=== PATIENT | male | born 1965 | race Hispanic/Latino ===

== ENCOUNTER 2019-09-08 16:05 | Observation (INO) | payer OTHER, SELFPAY ==
[~2019-09-08 16:05] MED LIST: Iopamidol-370 76% 500 ML 1 ML ONE
[2019-09-08 16:45] LABS: #Lymphocytes 1.1 thou/uL (1.20-3.40); #Monocytes 1.3 thou/uL (0.11-0.59); #Neutrophils 9.5 thou/uL (1.40-6.50); %Basophils 0.2 % (0.0-1.0); %Eosinophils 0.1 % (0.0-10.0); %Lymphocytes 9.3 % (21.0-51.0); %Monocytes 10.7 % (0.0-10.0); %Neutrophils 79.8 % (42.0-75.0); Hemoglobin 13.1 g/dL (14.0-18.0); Mean Corpuscular HGB CONC 31.8 g/dL (32.0-36.0); Mean Corpuscular Hemoglobin 29.2 pg (27.0-31.0); Mean Corpuscular Volume 91.9 fL (78.0-98.0); Mean Platelet Volume 8.6 fL (7.4-10.4); Platelet Count 307 thou/uL (130-400); RBC Distribution Width 12.5 % (11.5-14.5); Red Blood Cell (RBC) Count 4.48 mill/uL (4.70-6.10); White Blood Cell (WBC) Count 11.8 thou/uL (4.8-10.8)
--- NOTE | 2019-09-08 17:03 | RAD ---
Chest AP view INDICATION: History of positive Covid testing 3 days ago with worsening cough, sore throat and chest pain COMPARISON: February 05, 2012 chest radiograph FINDINGS: Lungs: There are patchy peripheral airspace opacities consistent with patient's known history of Cov id positive infection. More prominent areas of airspace opacity are seen within the left lower lobe. Cardiac silhouette: The cardiomediastinal silhouette appears within normal limits. Pulmonary vasculature: Normal Pleural spaces: No pleural effusion or pneumothorax is demonstrated. Upper abdomen: No abnormality seen. Osseous structures: No acute osseous abnormality. Additional findings: None. IMPRESSION: Patchy areas of peripheral airspace opacity consistent patient's known history of Covid possible pneu monia. Continued follow-up is recommended.
[2019-09-08 17:12] LABS: ALT (SGPT) 82 U/L (8-55); AST (SGOT) 51 U/L (5-34); Albumin 3.8 g/dL (3.5-5.0); Alkaline Phosphatase 155 U/L (40-110); Anion Gap 12 mmol/L (10-20); BUN (Urea Nitrogen) 15 mg/dL (8.4-25.7); Bilirubin, Total 0.7 mg/dL (0.2-1.2); Calc. Creatinine Clearance 0 mL/min (70-130); Calcium 9.2 mg/dL (7.8-10.44); Carbon Dioxide 26 mmol/L (22-29); Chloride 102 mmol/L (98-107); Estimated GFR-MDRD 86; Globulin 4.1 g/dL (2.4-3.5); Glucose 140 mg/dL (70-105); Potassium 3.9 mmol/L (3.5-5.1); Protein, Total 7.9 g/dL (6.0-8.3); Sodium 136 mmol/L (136-145)
[2019-09-08 17:18] LABS: INR-International Normal Ratio 1.1; Prothrombin Time 14.6 sec (12.0-14.7)
[2019-09-08 17:19] LABS: D-Dimer Test 1.05 *mcg/mL (0.27-0.43); PTT 44.4 sec (22.9-36.1)
--- NOTE | 2019-09-08 17:58 | CT ---
CTA Angio Chest W WO Con 09/08/2019 5:28 PM Indication: Cough, sore throat, chest pain and positive Covid testing Technique: Multiple CTA images were obtained of the thorax with IV contrast. 3-D rendering: MIP michelle nstructed images were created and reviewed. Comparison: No relevant prior studies available. Findings: Pulmonary arteries: No central or segmental pulmonary embolus is evident. Heart and Aorta: There is mild cardiomegaly. The aorta and great vessels of the neck appear patent. There are mild vascular calcifications involving thoracic aorta. Mediastinum:There are a few mildly prominent, shotty appearing lymph nodes within the mediastinum. On e of the largest is seen within the left tracheobronchial region measuring approximately 6 mm. There is a subcarinal lymph node measuring 1.1 cm. There are mildly prominent hilar lymph nodes. One of the largest measures 8 mm within the left hilar region. Lungs:There are prominent patchy areas of peripheral groundglass airspace opacity seen affecting both lungs but more prominently within a basilar distribution. Pleural space: Clear. Upper Abdomen: There are some punctate densities in the gallbladder neck suspicious for tiny stones. Osseous Structures: No acute osseous abnormality. There is scattered degenerative and osteoarthritic change present. Soft tissues:No abnormality. Other findings:None. Impression: 1. No central or segmental pulmonary embolus. 2. Prominent areas of peripheral groundglass airspace opacity consistent with a radiographic pattern seen with Covid related pneumonia. 3. Mild cardiomegaly. 4. Suspected tiny gallstones.
--- NOTE | 2019-09-08 19:57 | PDOC.HHP ---
Hospitalist HPI - History of Present Illness COVID19 +'ve/ hypoxia History of Present Illness: Patient with no significant PMH per his recollection presents to ED for evaluation of worsening dyspnea/SOB. Tells me that over the last 1.5 weeks has been having increasing shortness of breath with mild cough and productive sputum. He is known to be COVID19 +'ve. Tells me that over the last several days his shortness of breath appears to be worsening particularly on exertion and at night. Denies any fever or chills. On my exam he is saturating well in the mid-high 90s on 2L O2 via NC. He does appear to be somewhat dyspenic after short conversation but is speaking in full sentences with no no evidence of distress. Initial ED evaluation reveals CT scan suggestive of bilateral multilobar PNA suggestive of COVID19. VS reveal borderline hypoxia in the low 90s on room air. Haylie signs are otherwise stable. LFTs are mildly elevated. D-dimer 1.05 with negative CTA for PE. Hospitalist ROS - Review of Systems Constitutional: reports: weakness. denies: fever, chills Eyes: denies: vision change ENT: denies: ear pain, nose congestion, throat pain Respiratory: reports: cough, shortness of breath, SOB with excertion, sputum. denies: wheezing Cardiovascular: denies: chest pain, palpitations, orthopnea, paroxysmal noc. dyspnea Gastrointestinal: denies: nausea, vomiting, abdominal pain Genitourinary: denies: dysuria, frequency, incontinence Musculoskeletal: denies: neck pain, back pain Skin: denies: rash, lesions, janet, bruising, other Neurological: denies: weakness, numbness, incoordination, change in speech, confusion, seizures, other - Medication Medications: No medications on record. Hospitalist History - Past Medical History Cardiac: denies: CAD, CHF, HTN, Hyperlipidemia Pulmonary: denies: asthma, bronchitis, COPD, deep vein thrombosis, emphysema - Social History Smoking Status: Smoker, status unknown - Exam General Appearance: NAD, awake alert Eye: PERRL ENT: normocephalic atraumatic, no oropharyngeal lesions, moist mucosa Neck: supple, no JVD Heart: RRR, no murmur Respiratory - other findings: Decreased breath sounds with fine scattered rhonchi Gastrointestinal: soft, non-tender, non-distended, normal bowel sounds, no palpable masses, no hepatomegaly Skin: normal turgor, no lesions Psychiatric: normal affect Hospitalist Results - Labs Result Diagrams: 09/09/19 04:20 09/09/19 04:20 Lab results: WBC 11.8 thou/uL (4.8-10.8) H 09/08/19 16:29 Hgb 13.1 g/dL (14.0-18.0) L 09/08/19 16:29 Hct 41.2 % (42.0-52.0) L 09/08/19 16:29 MCV 91.9 fL (78.0-98.0) 09/08/19 16:29 Plt Count 307 thou/uL (130-400) 09/08/19 16:29 Neutrophils % 79.8 % (42.0-75.0) H 09/08/19 16:29 Sodium 136 mmol/L (136-145) 09/08/19 16:29 Potassium 3.9 mmol/L (3.5-5.1) 09/08/19 16:29 Chloride 102 mmol/L (98-107) 09/08/19 16:29 Carbon Dioxide 26 mmol/L (22-29) 09/08/19 16:29 BUN 15 mg/dL (8.4-25.7) 09/08/19 16:29 Creatinine 0.92 mg/dL (0.7-1.3) 09/08/19 16:29 Glucose 140 mg/dL (70-105) H 09/08/19 16:29 Lactic Acid 1.7 mmol/L (0.5-2.2) 09/08/19 16:29 Calcium 9.2 mg/dL (7.8-10.44) 09/08/19 16:29 Total Bilirubin 0.7 mg/dL (0.2-1.2) 09/08/19 16:29 AST 51 U/L (5-34) H 09/08/19 16:29 ALT 82 U/L (8-55) H 09/08/19 16:29 Alkaline Phosphatase 155 U/L (40-110) H 09/08/19 16:29 Creatine Kinase 37 U/L (30-200) 09/08/19 16:29 B-Natriuretic Peptide 59.0 pg/mL (0-100) 09/08/19 16:29 Serum Total Protein 7.9 g/dL (6.0-8.3) 09/08/19 16:29 Albumin 3.8 g/dL (3.5-5.0) 09/08/19 16:29 - Radiology Interpretation CT scan - chest Status: image reviewed by me (Suggestive of COVID19.) Hospitalist H&P A/P - Plan Plan: Problem List 1. Multilobar Pneumonia due to COVID19 2. Hypoxia 3. Abnormal LFTs Assessment/Plan 1. Multilobar Pneumonia due to COVID19 - admit patient for further observation - currently with no evidence of sepsis or distress - continuous pulse ox & oxygen supplementation - consider repeating x-ray and ABG in AM - pending night progression will benefit from exercise desaturation - hold off antibiotics and steroids for now & monitor progression - consider remdesivir if further decompensation occurs - continue with antitussives & Tylenol PRN 2. Hypoxia - in setting of COVID19 -continuous pulse ox & oxygen supplementation - consider repeating x-ray and ABG in AM - rest of care per above plan 3. Abnormal LFTs - likely in setting of COVID19 - monitor DVT PPX: Lovenox FULL CODE
[2019-09-08] MEDS ORDERED: cefTRIAXone\\ROCEPHIN 2 GM VIAL ONE (20:32)
[2019-09-08] MEDS ORDERED: Azithromycin 500 MG VIAL ONE (20:32)
[2019-09-08] MEDS ORDERED: Sodium Chloride 0.9% 100 ML ONE (20:32)
[2019-09-08] MEDS ORDERED: Guaifenesin DM 100-10/5 ML UDCUP PO PRN (20:35)
[2019-09-08] MEDS ORDERED: Ondansetron PF 4 MG/2 ML Vial IVP PRN (20:35)
[2019-09-08] MEDS ORDERED: Acetaminophen 325 MG TAB PO PRN (20:35)
[2019-09-08] MEDS ORDERED: Senokot S 8.6-50 MG TAB PO PRN (20:35)
[2019-09-08 22:32] VITALS: BMI 26.0
[2019-09-09 04:49] LABS: #Lymphocytes 1.1 thou/uL (1.20-3.40); #Monocytes 1.3 thou/uL (0.11-0.59); #Neutrophils 6.6 thou/uL (1.40-6.50); %Basophils 0.2 % (0.0-1.0); %Eosinophils 0.5 % (0.0-10.0); %Lymphocytes 11.9 % (21.0-51.0); %Monocytes 13.9 % (0.0-10.0); %Neutrophils 73.5 % (42.0-75.0); Hemoglobin 12.1 g/dL (14.0-18.0); Mean Corpuscular HGB CONC 31.3 g/dL (32.0-36.0); Mean Corpuscular Volume 92.8 fL (78.0-98.0); Mean Platelet Volume 8.7 fL (7.4-10.4); Platelet Count 287 thou/uL (130-400); RBC Distribution Width 12.5 % (11.5-14.5); Red Blood Cell (RBC) Count 4.17 mill/uL (4.70-6.10)
[2019-09-09 05:07] LABS: Anion Gap 12 mmol/L (10-20); BUN (Urea Nitrogen) 15 mg/dL (8.4-25.7); Calc. Creatinine Clearance 114 mL/min (70-130); Calcium 8.8 mg/dL (7.8-10.44); Carbon Dioxide 25 mmol/L (22-29); Chloride 103 mmol/L (98-107); Estimated GFR-MDRD Greater than 90; Glucose 126 mg/dL (70-105); Potassium 3.9 mmol/L (3.5-5.1); Sodium 136 mmol/L (136-145)
[2019-09-09] MEDS: Enoxaparin Sodium 40 MG/0.4 ML SYRINGE SC SCH (09:06)
--- NOTE | 2019-09-09 19:32 | PDOC.HOSPP ---
- Subjective Encounter Date: 09/09/19 Subjective: The patient is laying comfortably in bed. No acute distress was noted. He saturating in the low 90s on room air at rest. - Objective Vital Signs & Weight: Vital Signs (12 hours) Temp Pulse Resp BP Pulse Ox 09/09/19 15:03 98.6 F 78 20 155/93 H 95 09/09/19 13:07 99.2 F 88 21 H 159/94 H 95 09/09/19 09:05 98.2 F 84 33 H 143/93 H 94 L Weight Weight 161 lb 9.6 oz Result Diagrams: 09/09/19 04:20 09/09/19 04:20 Hospitalist ROS - Medication Medications: Active Medications Generic Name Dose Route Start Last Admin Trade Name Freq PRN Reason Stop Dose Admin Enoxaparin Sodium 40 mg 09/09/19 09:00 09/09/19 09:06 Lovenox SC 40 mg 0900 ELISEO Administration - Exam General Appearance: awake alert ENT: normocephalic atraumatic Neck: supple Heart: RRR Respiratory: normal chest expansion, no tachypnea Gastrointestinal: soft Neurological: cranial nerve grossly intact, no focal deficits
[2019-09-10] MEDS: Enoxaparin Sodium 40 MG/0.4 ML SYRINGE SC SCH (07:47)
[2019-09-10] MEDS: Dexamethasone 4 MG TAB PO SCH (10:03)
--- NOTE | 2019-09-10 20:16 | PDOC.HOSPP ---
- Subjective Encounter Date: 09/10/19 - Objective Vital Signs & Weight: Vital Signs (12 hours) Temp Pulse Resp BP Pulse Ox 09/10/19 15:00 98.6 F 90 27 H 132/85 96 09/10/19 12:46 98.6 F 71 16 149/95 H 98 Weight Admit Weight 161 lb 9.6 oz Weight 161 lb 9.6 oz Result Diagrams: 09/09/19 04:20 09/09/19 04:20 Hospitalist ROS - Review of Systems Respiratory: reports: SOB with excertion - Medication Medications: Active Medications Generic Name Dose Route Start Last Admin Trade Name Freq PRN Reason Stop Dose Admin Acetaminophen 650 mg 09/08/19 20:35 09/10/19 05:26 Tylenol PO 650 mg Q4H PRN Administration Headache/Fever/Mild Pain (1-3) Dexamethasone 6 mg 09/10/19 08:00 09/10/19 10:03 Decadron PO 6 mg QAM-WM ELISEO Administration Enoxaparin Sodium 40 mg 09/09/19 09:00 09/10/19 07:47 Lovenox SC 40 mg 0900 ELISEO Administration Sodium Chloride 10 ml 09/10/19 09:00 09/10/19 20:14 Flush - Normal Saline IVF 10 ml Q12HR ELISEO Administration - Exam General Appearance: NAD, awake alert ENT: normocephalic atraumatic Heart: RRR Respiratory: normal chest expansion, no tachypnea, tachypneic Neurological: cranial nerve grossly intact Hosp A/P (1) COVID-19 Code(s): U07.1 - COVID-19 Status: Acute (2) Acute respiratory failure with hypoxia Code(s): J96.01 - ACUTE RESPIRATORY FAILURE WITH HYPOXIA Status: Acute - Plan The patient's shortness of breath is slowly improving. Still requiring oxygen. Dexamethasone 6 mg orally daily for 10-day regimen has been initiated due to possible benefit of reducing mortality per recent [place] study.
[2019-09-11] MEDS: Dexamethasone 4 MG TAB PO SCH (08:01)
[2019-09-11] MEDS: Enoxaparin Sodium 40 MG/0.4 ML SYRINGE SC SCH (08:02)
[2019-09-11 09:15] VITALS: BP 139/89; TEMP 96.9
--- NOTE | 2019-09-11 23:15 | DIS ---
DATE OF ADMISSION: 09/08/2019 DATE OF DISCHARGE: 09/11/2019 DISCHARGE DIAGNOSES: 1. Acute respiratory failure with hypoxia. 2. COVID-19 pneumonia. DISCHARGE MEDICATIONS: 1. Tylenol 650 mg q.6 hours as needed for fever or pain. 2. Dexamethasone 6 mg orally daily for 7 days. HISTORY OF PRESENT ILLNESS AND HOSPITAL COURSE: The patient is a 54-year-old male with past medical history of smoking, who presented to the hospital with complaints of shortness of breath that has been worsening over the past week. The patient had a positive test for COVID-19 prior to his presentation. He was found to be hypoxic in the ER and CTA of the chest did not show any pulmonary embolus, but did show bilateral infiltrates suggestive of COVID-19. The patient was admitted to the hospital and started on dexamethasone 6 mg orally daily. His hypoxia resolved within 48 hours. He will continue the full regimen of 10 days on an outpatient basis. The patient was instructed to implement social distancing for at least 10 days, which can be lifted after that if he is fever-free for 3 days and symptom-free for 3 days. Job ID: [id number]
--- NOTE | 2019-09-13 14:50 | EKG ---
Test Reason : SEPSIS Blood Pressure : / mmHG Vent. Rate : 097 BPM Atrial Rate : 097 BPM P-R Int : 144 ms QRS Dur : 076 ms QT Int : 342 ms P-R-T Axes : 013 -09 014 degrees QTc Int : 434 ms Normal sinus rhythm Normal ECG Confirmed by ANNA BRUNO, BRONSON ([id number]), film or videotape editor MICHELLE DUARTE ([id number]) on 09/13/2019 2:50:23 PM Referred By: [email or web address] Confirmed By:BRONSON CASTILLO MD
== END 2019-09-11 12:57 | disposition home or self-care (01) ==
LOC: ERS 16:05 → 2SW 20:24
PROVIDERS: ADMIT Internal Medicine; ATTEND Internal Medicine
DX: U07.1 COVID-19 (principal); J12.89 Other viral pneumonia; J96.01 Acute respiratory failure with hypoxia; I11.0 Hypertensive heart disease with heart failure; I50.9 Heart failure, unspecified; I25.10 Atherosclerotic heart disease of native coronary artery without angina pectoris; E78.5 Hyperlipidemia, unspecified; Z87.891 Personal history of nicotine dependence
CPT/HCPCS: 36415; 71045; 71275; 80048; 80053; 82550; 83605; 83880; 85025; 85379; 85610; 85730; 87040; 93005; 94760; 96365; 96372; G0378; J0456; J0696; J1650; J3490; J8540; Q9967

== ENCOUNTER 2022-04-15 11:11 | Observation (INO) | payer SELFPAY ==
[2022-04-15 12:13] LABS: #Eosinphils 0.1 thou/uL (0.0-0.7); #Lymphocytes 0.9 thou/uL (1.20-3.40); #Monocytes 0.9 thou/uL (0.11-0.59); #Neutrophils 8.5 thou/uL (1.40-6.50); %Basophils 0.1 % (0.0-1.0); %Eosinophils 0.7 % (0.0-10.0); %Lymphocytes 8.9 % (21.0-51.0); %Monocytes 8.4 % (0.0-10.0); Mean Corpuscular HGB CONC 33.8 g/dL (32.0-36.0); Mean Corpuscular Hemoglobin 32.2 pg (27.0-31.0); Mean Corpuscular Volume 95.3 fl (78.0-98.0); Platelet Count 183 10x3/uL (130-400); RBC Distribution Width 12.4 % (11.5-14.5); Red Blood Cell (RBC) Count 4.05 mill/uL (4.70-6.10); White Blood Cell (WBC) Count 10.4 10x3/uL (4.8-10.8)
[2022-04-15] MEDS ORDERED: Morphine 4 MG/ML VIAL ONE (12:36)
[2022-04-15] MEDS ORDERED: Ondansetron PF 4 MG/2 ML Vial ONE ×2 (12:36→14:56)
[2022-04-15 12:46] LABS: ALT (SGPT) 19 U/L (8-55); AST (SGOT) 13 U/L (5-34); Albumin 3.7 g/dL (3.5-5.0); Alkaline Phosphatase 95 U/L (40-110); Anion Gap 13 mmol/L (10-20); BUN (Urea Nitrogen) 14 mg/dL (8.4-25.7); Bilirubin, Total 0.8 mg/dL (0.2-1.2); Calc. Creatinine Clearance 0 mL/min (70-130); Calcium 9.3 mg/dL (7.8-10.44); Carbon Dioxide 22 mmol/L (22-29); Chloride 107 mmol/L (98-107); Estimated GFR 102; Globulin 3.1 g/dL (2.4-3.5); Glucose 111 mg/dL (70-105); Lipase 4 U/L (8-78); Potassium 3.3 mmol/L (3.5-5.1); Protein, Total 6.8 g/dL (6.0-8.3); Sodium 139 mmol/L (136-145)
[2022-04-15] MEDS ORDERED: Piperacillin/Tazobactam 3.375 GM VIAL ONE (13:55)
[2022-04-15] MEDS ORDERED: Fentanyl 250 MCG/5 ML VIAL ONE (14:11)
[2022-04-15] MEDS ORDERED: Bupivacaine/Epinephrine 0.25% 30 ML VIAL ONE (14:27)
[2022-04-15] MEDS ORDERED: Dexamethasone 20 MG/5 ML VIAL ONE (14:56)
[2022-04-15] MEDS ORDERED: Rocuronium Bromide 10 MG/ML (10ML VIAL) ONE (14:56)
[2022-04-15] MEDS ORDERED: PROPOFOL 200 MG/20 ML VIAL ONE (14:56)
[2022-04-15] MEDS ORDERED: Lidocaine 1% PF 5 ML VIAL ONE (14:56)
[2022-04-15] MEDS ORDERED: Glycopyrrolate 0.2 MG/ML 5 ML SYRINGE ONE (14:56)
[2022-04-15] MEDS ORDERED: NEOSTIGMINE 3 MG/3 ML SYR 3 MG/3 ML SYRINGE ONE (14:56)
[2022-04-15] MEDS ORDERED: Ketorolac Tromethamine 30 MG/ML VIAL ONE (14:56)
[2022-04-15] MEDS ORDERED: Promethazine HCl 25 MG/ML VIAL IM PRN (16:12)
[2022-04-15] MEDS ORDERED: Ondansetron PF 4 MG/2 ML Vial IVP PRN (16:12)
[2022-04-15] MEDS ORDERED: Acetaminophen 325 MG TAB PO PRN (16:12)
[2022-04-15] MEDS ORDERED: Ipratropium/Albuterol 3 ML NEB NEB PRN (16:12)
[2022-04-15] MEDS ORDERED: Dextrose 50% Abboject 50 ML SYRINGE SLOW IVP PRN (16:12)
[2022-04-15] MEDS ORDERED: Dextrose 5% in Water 1,000 ML IV PRN (16:12)
[2022-04-15] MEDS ORDERED: hydrALAZINE 20 MG/ML VIAL SLOW IVP PRN (16:12)
[2022-04-15] MEDS ORDERED: traMADol HCl 50 MG TAB PO PRN (16:13)
[2022-04-15] MEDS ORDERED: Ibuprofen 600 MG TAB PO PRN (16:14)
[2022-04-15] MEDS: Famotidine 20 MG TAB PO SCH (20:25)
[2022-04-15] MEDS: Famotidine/PF 20 mg/2ml Vial SLOW IVP SCH (20:37)
[2022-04-16 00:24] VITALS: BMI 26.4
[2022-04-16] MEDS: Famotidine 20 MG TAB PO SCH (10:36)
[2022-04-16] MEDS: Famotidine/PF 20 mg/2ml Vial SLOW IVP SCH (10:37)
[2022-04-16 14:32] VITALS: BP 144/86; TEMP 97.7
[2022-04-19] MEDS ORDERED: FLU VACC QS2022-23(6MOS UP)/PF 60 MCG/0.5 ML SYRINGE IM ONE (09:00)
== END 2022-04-16 15:05 | disposition home or self-care (01) ==
LOC: ERS 11:11 → SDC 14:30 → SURG A 16:12
PROVIDERS: ADMIT Surgery; ATTEND Surgery
PROC: 0DTJ4ZZ Resection of Appendix, Percutaneous Endoscopic Approach (ICD-10-PCS; principal; 2022-04-15)
DX: K35.80 Unspecified acute appendicitis (principal)
CPT/HCPCS: 74177; 80053; 83690; 84484; 85025; 88304; 93005; 96374; 96375; A4649; C1776; G0378; J1100; J1885; J2270; J2405; J2543; J2704; J3010; Q9967

== ENCOUNTER 2023-02-21 16:51 | Emergency (ER) | payer SELFPAY ==
[2023-02-21 18:06] LABS: #Monocytes 0.6 thou/uL (0.11-0.59); #Neutrophils 7.2 thou/uL (1.40-6.50); %Basophils 0.2 % (0.0-1.0); %Eosinophils 0.2 % (0.0-10.0); %Lymphocytes 5.9 % (21.0-51.0); %Monocytes 7.1 % (0.0-10.0); %Neutrophils 86.1 % (42.0-75.0); Hematocrit 44.2 % (42.0-52.0); Hemoglobin 14.8 g/dL (14.0-18.0); Mean Corpuscular HGB CONC 33.5 g/dL (32.0-36.0); Mean Corpuscular Hemoglobin 30.6 pg (27.0-31.0); Mean Corpuscular Volume 91.3 fl (78.0-98.0); Platelet Count 238 10x3/uL (130-400); RBC Distribution Width 13.1 % (11.5-14.5); Red Blood Cell (RBC) Count 4.84 mill/uL (4.70-6.10); White Blood Cell (WBC) Count 8.3 10x3/uL (4.8-10.8)
[2023-02-21] MEDS ORDERED: Acetaminophen 500 MG TAB ONE (18:24)
[2023-02-21] MEDS ORDERED: Ondansetron ODT 4 MG TAB ONE (18:24)
[2023-02-21] MEDS ORDERED: Lidocaine 2% Viscous Solution 10 ML, Aluminum & Magnesium Hydroxide 30 ML SSW SCH (18:30)
[2023-02-21 18:34] LABS: ALT (SGPT) 22 U/L (8-55); AST (SGOT) 16 U/L (5-34); Albumin 4.3 g/dL (3.5-5.0); Alkaline Phosphatase 91 U/L (40-110); Anion Gap 14 mmol/L (10-20); BUN (Urea Nitrogen) 20 mg/dL (8.4-25.7); Calc. Creatinine Clearance 0 mL/min (70-130); Calcium 9.4 mg/dL (7.8-10.44); Carbon Dioxide 22 mmol/L (22-29); Chloride 105 mmol/L (98-107); Estimated GFR 101; Globulin 3.2 g/dL (2.4-3.5); Glucose 121 mg/dL (70-105); Lipase 6 U/L (8-78); Potassium 4.2 mmol/L (3.5-5.1); Protein, Total 7.5 g/dL (6.0-8.3); Sodium 137 mmol/L (136-145)
[2023-02-21 19:30] LABS: Troponin I Less than 0.010 ng/mL (< 0.028)
[2023-02-21 20:12] LABS: Bacteria/HPF None Seen HPF (None Seen); Bilirubin Negative (Negative); Blood, Urine 2+ (Negative); CAUTI Indications for Culture Pelvic or flank pain; Clarity Clear (Clear); Glucose, Urine (Dipstick) Normal (Negative); Ketone, Urine Negative (Negative); Leukocyte Negative Leu/uL (Negative); Mucous/LPF Rare LPF (<2+); Nitrite Negative (Negative); Protein, Urine (Dipstick) 20 mg/dL (Neg-Trace); Specific Gravity, Urine 1.035 (1.002-1.036); Squamous Epithelial 0-3 HPF (0-3); Urine Culture Reflex No No; Urobilinogen Normal mg/dL (Less than 2); WBC/HPF 0-3 HPF (0-3)
== END 2023-02-21 20:14 | disposition home or self-care (01) ==
LOC: ERS 16:51
DX: K80.70 Calculus of gallbladder and bile duct without cholecystitis without obstruction (principal)
CPT/HCPCS: 36415; 76705; 80053; 81001; 83690; 84484; 85025; 93005; Q0162